=== PATIENT | male | born 1935 | race Caucasian/White ===

== ENCOUNTER → 2017-03-16 | Outpatient (CLI) | payer OTHER ==
--- NOTE | ~2017-03-16 | US38 ---
[facility] A Service of [facility] RADIOLOGY TEXT RESULTS PATIENT: ADRIANA MORALES LOCATION: CNIV : 37 UNIT #: [id number] AGE: [address]: JV KNOX APRN SEX: M ORDER DR: [id number] [facility] [address] [place], [place] [address] [id number] O MR#: [id number] Acc #: [id number] NAME: ADRIANA MORALES. : 1935 SEX: M STUDY DATE/TIME: 03/16/2017 10:53 UNIT: CNIV ROOM: STUDY DESCRIPTION: US Carotid W/Doppler Unilatera Attending Physician: Jv Knox Aprn Referring Physician: Jv Knox Aprn Ordering Physician: Jv Knox Aprn Primary Care Physician: Gonzalez Miller M.D. MEDICAL IMAGING REPORT This report is preliminary unless electronic signature is present DATE OF EXAM 03/16/2017 EXAM Left carotid Doppler. HISTORY Carotid stenosis. History of left carotid stent. FINDINGS The left common carotid, internal carotid, and external carotid arteries are patent with plaque noted at the mid common carotid artery and a stent in place from the distal common carotid artery into the carotid bulb and into the internal carotid artery. Velocity of the common carotid artery is 125 cm/sec. Peak systolic velocity in the left proximal internal carotid artery is 100 cm/sec with an end-diastolic velocity of 31 cm/sec, for an ICA/CCA ratio of 0.8. External carotid artery had a velocity of 126 cm/sec. The vertebral artery is visualized with antegrade flow. IMPRESSION 1. Widely patent left carotid stent without evidence of stenosis. 2. No stenosis of the left extremity carotid artery. 3. Antegrade flow of the left vertebral artery. 4. Mild residual plaque within the left mid common carotid artery. Dictated by... Anil Lee M.D. THIS IS AN ELECTRONICALLY VERIFIED REPORT Anil Lee M.D. at 03/24/2017 11:49 AM [facility] A Service of [facility] RADIOLOGY TEXT RESULTS PATIENT: ADRIANA MORALES LOCATION: IV : 37 UNIT #: [id number] AGE: [address]: JV KNOX APRN SEX: M ORDER DR: DAVE/flakito TD: 03/16/2017 14:46 JOB #: [id number] MEDICAL IMAGING REPORT Page 1 of 1 COPY
== END | disposition home or self-care (01) ==
LOC: CNIV 10:18
DX: I65.23 Occlusion and stenosis of bilateral carotid arteries (principal); I65.22 Occlusion and stenosis of left carotid artery; Z95.828 Presence of other vascular implants and grafts
CPT/HCPCS: 93882